=== PATIENT | male | born 1950 | race Native Hawaiian/Other Pacific Islander ===

== ENCOUNTER 2018-08-27 15:36 | Observation (INO) | payer SELFPAY | END 2018-08-29 16:57 | disposition home or self-care (01) | LOC: C.ER 15:36 → C.9E 19:08 → C.6T 19:43 | PROVIDERS: ADMIT Internal Medicine Nephrology | CPT/HCPCS: 36415; 70450; 70486; 80048; 80053; 85025; 85027; 85610; 85730; 86850; 86900; 99285; G0378; J1650; J2270 ==